=== PATIENT | female | born 1945 | race Caucasian/White ===

== ENCOUNTER → 2018-10-16 | Outpatient (CLI) | payer MEDICARE, BC ==
[~2018-10-16] MED LIST: AMOXICILLIN 8751 TAB PO; CELEXA 20MG20 MG/TAB PO; CLEOCIN HCL300 MG PO; LEVAQUIN 5500 MG/TA1 PO; NORVASC 5MG5 MG/TAB PO; PRINIVIL20 MG PO; TUSS PO; VERELAN360 MG PO
== END ==
LOC: MC.RAD 08:20
DX: Z12.31 Encounter for screening mammogram for malignant neoplasm of breast (principal)

== ENCOUNTER 2020-07-11 10:59 | Emergency (ER) | payer MEDICARE, BC ==
[~2020-07-11] VITALS: Ht 154.9 cm; Wt 63.6 kg
[2020-07-11 11:12] VITALS: TEMP 98
[2020-07-11 11:54] LABS: BASO # 0.1 (0.0-0.2); BASO % 0.6 % (0.0-2.0); EOS # 0.1 (0.0-0.7); EOS % 1.2 % (0-4.0); GRAN # 5.6 (1.4-6.5); GRAN % 65.8 % (42.2-75.2); HEMOGLOBIN 13.2 g/dl (12.5-16.0); LYMPH # 2.2 (1.2-3.4); LYMPH % 25.3 % (20.0-51.0); MEAN CELL VOLUME 92 fl (80.0-100.0); MEAN CORPUSCULAR HEMOGLOBIN 30 pg (27.0-31.0); MEAN CORPUSCULAR HGB CONC 33 g/dl (33.0-37.0); MEAN PLATELET VOLUME 9.7 fl (7.4-10.4); MONO # 0.6 (0.1-0.6); MONO % 6.9 % (1.7-9.3); PLATELET COUNT 241 K/mm3 (130-400); RED BLOOD COUNT 4.34 M/mm3 (4.10-5.30)
[2020-07-11 12:00] LABS: INR 0.9 (0.8-3.0); PROTHROMBIN TIME 10.3 SECONDS (9.7-12.8)
[2020-07-11 12:08] LABS: ALANINE AMINOTRANSFERASE 22 U/L (4-34); ALBUMIN 4.3 gm/dL (3.5-5.0); ALKALINE PHOSPHATASE 94 U/L (50-136); ANION GAP 6 mmol/L (7-16); AST,SGOT 23 U/L (15-37); BILIRUBIN,TOTAL 0.6 mg/dL (0.0-1.0); BLOOD UREA NITROGEN 18 mg/dL (7-17); CALCIUM 10.8 mg/dL (8.4-10.2); CARBON DIOXIDE 28 mmol/L (22-30); CHLORIDE 105 mmol/L (98-107); GLUCOSE 94 mg/dL (74-106); LIPASE 54 U/L (23-300); SODIUM 140 mmol/L (137-145); TOTAL PROTEIN 7.2 gm/dL (6.4-8.2)
[2020-07-11 12:22] LABS: TROPONIN-I < 0.012 ng/mL (0.000-0.035)
[2020-07-11 15:49] VITALS: BP 165/75; PULSE 73
== END 2020-07-11 15:51 | disposition home or self-care (01) ==
LOC: COL.ER 10:59
PROVIDERS: Emergency Medicine
DX: R07.89 Other chest pain (principal); I10 Essential (primary) hypertension
CPT/HCPCS: J7030

== ENCOUNTER → 2021-04-15 | Outpatient (CLI) | payer MEDICARE, BC | LOC: COL.RAD 07:30 | DX: K86.9 Disease of pancreas, unspecified (principal) | CPT/HCPCS: A9585 ==

== ENCOUNTER 2022-05-19 10:21 | Emergency (ER) | payer MEDICARE, BC ==
[~2022-05-19] VITALS: Ht 152.4 cm; Wt 53.6 kg
[2022-05-19 10:33] VITALS: TEMP 98.2
[2022-05-19 11:40] VITALS: BP 110/70; PULSE 87
== END 2022-05-19 11:40 | disposition home or self-care (01) ==
LOC: COL.ER 10:21
DX: S00.83XA Contusion of other part of head, initial encounter (principal); S80.811A Abrasion, right lower leg, initial encounter; Z28.310 Unvaccinated for COVID-19; W10.9XXA Fall (on) (from) unspecified stairs and steps, initial encounter; Y92.009 Unspecified place in unspecified non-institutional (private) residence as the place of occurrence of the external cause

== ENCOUNTER → 2022-11-08 | Outpatient (CLI) | payer MEDICARE, BC | LOC: COL.RAD 10:03 | DX: E21.3 Hyperparathyroidism, unspecified (principal) | CPT/HCPCS: A9500-JZ ==

== ENCOUNTER → 2023-01-10 | Outpatient (CLI) | payer MEDICARE, BC | LOC: MC.RAD 10:15 | DX: Z12.31 Encounter for screening mammogram for malignant neoplasm of breast (principal) ==